=== PATIENT | male | born 1975 | race African-American/Black ===

== ENCOUNTER 2021-03-16 07:52 | Emergency (ER) | payer OTHER ==
[2021-03-16 08:14] VITALS: BP 128/84; PULSE 75; TEMP 98.7; BMI 26.7
[2021-03-16] MEDS ORDERED: IBUPROFEN 600 MG TABLET (FP) PO ONE (09:00)
== END 2021-03-16 09:16 | disposition home or self-care (01) ==
LOC: JER 07:52 → JERFT 07:52
DX: H92.02 Otalgia, left ear (principal)
CPT/HCPCS: 99283-25

== ENCOUNTER 2021-06-23 10:12 | Emergency (ER) | payer OTHER ==
[2021-06-23 10:26] VITALS: BP 136/81; PULSE 80; TEMP 98.1; BMI 26.4
[2021-06-23] MEDS ORDERED: predniSONE 20 MG TABLET (UD) PO ONE (11:10)
[2021-06-23] MEDS ORDERED: diphenhydrAMINE HCL 50 MG CAPSULE PO ONE (11:10)
[2021-06-23] MEDS ORDERED: FAMOTIDINE 20 MG TABLET PO ONE (11:10)
[2021-06-23] MEDS ORDERED: FAMOTIDINE 20 MG TABLET ONE (11:14)
[2021-06-23] MEDS ORDERED: diphenhydrAMINE HCL 25 MG CAPSULE (FP) PO ONE (11:14)
[2021-06-23] MEDS ORDERED: predniSONE 20 MG TABLET (UD) ONE (11:15)
== END 2021-06-23 13:39 | disposition home or self-care (01) ==
LOC: JER 10:12 → JERFT 10:12
DX: T78.3XXA Angioneurotic edema, initial encounter (principal)
CPT/HCPCS: 99283-25

== ENCOUNTER 2024-04-10 18:48 | Emergency (ER) | payer BC, OTHER ==
[2024-04-10 18:57] VITALS: BP 131/86; PULSE 74; RESP 18; TEMP 98.2; BMI 27.8
[2024-04-10] MEDS ORDERED: SULFAMETHOXAZOLE/TRIMETHOPRIM 800MG/160MG D.S. TABLET ONE (20:26)
[2024-04-10] MEDS ORDERED: KETOROLAC TROMETHAMINE 30 MG/1 ML VIAL ONE (20:26)
[2024-04-10] MEDS: KETOROLAC TROMETHAMINE 30 MG/1 ML VIAL IM ONE (20:33)
[2024-04-10] MEDS: SULFAMETHOXAZOLE/TRIMETHOPRIM 800MG/160MG D.S. TABLET PO ONE (20:38)
== END 2024-04-10 21:16 | disposition home or self-care (01) ==
LOC: JER 18:48
PROC: 3E0233Z Introduction of Anti-inflammatory into Muscle, Percutaneous Approach (ICD-10-PCS; principal; 2024-04-10)
DX: M25.521 Pain in right elbow (principal); M25.421 Effusion, right elbow
CPT/HCPCS: 73070-TC-RT-FY; 99284-25

== ENCOUNTER 2024-06-13 10:25 | Emergency (ER) | payer OTHER, BC ==
[2024-06-13 10:34] VITALS: BP 132/94; PULSE 88; RESP 18; TEMP 98.4; BMI 29.7
[2024-06-13] MEDS ORDERED: ACETAMINOPHEN INJECTION 100 ML IVPB ONE (11:54)
[2024-06-13] MEDS ORDERED: KETOROLAC TROMETHAMINE 30 MG/1 ML VIAL ONE (11:55)
[2024-06-13] MEDS: ACETAMINOPHEN 1000 MG/100 ML BAG IVPB ONE (12:00)
[2024-06-13] MEDS: KETOROLAC TROMETHAMINE 30 MG/1 ML VIAL IVPUSH ONE (12:00)
[2024-06-13 12:17] LABS: BASO % 1.3 % (0-2.0); EOS % 4.9 % (0-4.5); HEMATOCRIT 45.3 % (35.4-49); HEMOGLOBIN 15.5 GM/dL (11.7-16.9); LYMPH % 22.8 % (8-40); MCH 33.2 pg (25.7-33.7); MCHC 34.3 g/dl (32.0-35.9); MEAN CELL VOLUME 96.9 fl (80-96); MEAN PLT VOLUME 9.1 fl (7.5-11.1); MONO % 16.7 % (3.8-10.2); NEUT % 54.3 % (42.8-82.8); PLATELET COUNT 268 10^3/uL (134-434); RBC 4.67 M/mm3 (4.00-5.60); RDW 14.1 % (11.9-15.9); WHITE BLOOD COUNT 5.6 K/mm3 (4.0-10.0)
[2024-06-13 12:37] LABS: POTASSIUM 5.3 mmol/L (3.5-5.1)
[2024-06-13 12:40] LABS: CALCIUM 9.8 mg/dL (8.5-10.1)
[2024-06-13 12:41] LABS: ALBUMIN 3.7 g/dl (3.4-5.0); BLOOD UREA NITROGEN 12.8 mg/dL (7-18)
[2024-06-13 12:44] LABS: CREATININE 0.9 mg/dL (0.55-1.3)
[2024-06-13 12:45] LABS: BILIRUBIN,TOTAL 0.6 mg/dL (0.2-1)
[2024-06-13] MEDS ORDERED: MORPHINE SULFATE 2 MG/ML SYRINGE ONE (13:03)
[2024-06-13] MEDS: morphine CARPU-JECT 2 MG/1 ML DISP.SYRIN IVPUSH ONE (13:09)
[2024-06-13] MEDS ORDERED: BACITRACIN ZINC 15 GM TUBE TOPICAL OINTMENT ONE (13:35)
== END 2024-06-13 14:05 | disposition home or self-care (01) ==
LOC: JER 10:25
PROC: 3E033NZ Introduction of Analgesics, Hypnotics, Sedatives into Peripheral Vein, Percutaneous Approach (ICD-10-PCS; principal; 2024-06-13)
PROC: 3E033NZ Introduction of Analgesics, Hypnotics, Sedatives into Peripheral Vein, Percutaneous Approach (ICD-10-PCS; 2024-06-13)
PROC: 3E0333Z Introduction of Anti-inflammatory into Peripheral Vein, Percutaneous Approach (ICD-10-PCS; 2024-06-13)
DX: S40.812A Abrasion of left upper arm, initial encounter (principal); M79.642 Pain in left hand; V23.49XA Other motorcycle driver injured in collision with car, pick-up truck or van in traffic accident, initial encounter; Y92.410 Unspecified street and highway as the place of occurrence of the external cause
CPT/HCPCS: 36415; 73110-TC-LT-FY; 73130-TC-LT-FY; 80053; 85025; 99284-25; J0131

== ENCOUNTER 2024-06-15 19:06 | Emergency (ER) | payer OTHER, BC ==
[2024-06-15 19:14] VITALS: BP 122/79; PULSE 77; RESP 20; TEMP 98; BMI 28.7
== END 2024-06-15 20:30 | disposition home or self-care (01) ==
LOC: JER 19:06
DX: S50.812A Abrasion of left forearm, initial encounter (principal); S70.212A Abrasion, left hip, initial encounter; S80.212A Abrasion, left knee, initial encounter; S90.812A Abrasion, left foot, initial encounter; V89.2XXA Person injured in unspecified motor-vehicle accident, traffic, initial encounter
CPT/HCPCS: 99283-25